=== PATIENT | female | born 1935 | race Caucasian/White ===

== ENCOUNTER 2016-09-04 09:55 | Outpatient (CLI) | payer MEDICARE, BC ==
[~2016-09-04] VITALS: Ht 160 cm; Wt 62.7 kg
[~2016-09-04 09:55] MED LIST: AMOXICILLIN 8751 TAB PO; ASPIRIN E.C. 8181 MG PO; B COMPLEX1 TA2 PO; CIPRO500 MG PO; CO Q-1010 MG PO; DITROPAN 5MG TAB5 MG PO; EFFEXOR 3737.5 MG/TA PO; EFFEXOR XR37.5 MG/CA PO; EFFEXOR XR75 MG/CAP PO; FOSAMAX PO; LOVASTATIN40 MG PO; METHOTREXA2.5 MG/TAB PO; MEVACOR40 MG PO; MUCINEX 60600 MG/TA1 PO; NORCO 325 MG-51 TAB PO; PRILOSEC 20MG20 MG PO; PROBIOTIC FORMU1 CAP PO; REMICADE V100 MG/VIA IV; RESTORIL30 MG PO; TEMAZEPAM30 MG PO; VESICARE 5MG5 MG PO; ZOFRAN 4MG T4 MG/TAB PO
[2016-09-04 10:43] LABS: HEMATOCRIT 38.9 % (37.0-47.0); HEMOGLOBIN 12.7 g/dl (12.5-16.0); MEAN CELL VOLUME 95 fl (80.0-100.0); MEAN CORPUSCULAR HEMOGLOBIN 31 pg (27.0-31.0); MEAN CORPUSCULAR HGB CONC 33 g/dl (33.0-37.0); MEAN PLATELET VOLUME 9.3 fl (7.4-10.4); PLATELET COUNT 282 K/mm3 (130-400); RED BLOOD COUNT 4.09 M/mm3 (4.10-5.30); REDCELL DISTRIBUTION WIDTH-CV 16.7 % (11.5-14.5); WHITE BLOOD COUNT 5.4 K/mm3 (4.8-10.8)
[2016-09-04 10:53] LABS: CREATININE, serum 0.81 mg/dL (0.52-1.25)
[2016-09-04 11:45] VITALS: BP 141/80; PULSE 75; TEMP 97.9
[2016-09-04 12:15] VITALS: BP 143/76; PULSE 74; TEMP 98.1
[2016-09-04 12:45] VITALS: BP 129/63; PULSE 84; TEMP 98.4
[2016-09-04 13:15] VITALS: BP 122/75; PULSE 82; TEMP 98
[2016-09-04 13:45] VITALS: BP 129/77; PULSE 80; TEMP 98.2
== END 2016-09-04 14:00 | disposition home or self-care (01) ==
LOC: EUO 09:55
PROVIDERS: Internal Medicine Rheumatology
DX: M06.89 Other specified rheumatoid arthritis, multiple sites (principal)
CPT/HCPCS: J1200; J1745; J7050

== ENCOUNTER 2016-10-30 09:46 | Outpatient (CLI) | payer MEDICARE, BC ==
[~2016-10-30] VITALS: Ht 160 cm; Wt 60.0 kg
[2016-10-30 10:34] LABS: HEMATOCRIT 38.9 % (37.0-47.0); HEMOGLOBIN 12.7 g/dl (12.5-16.0); MEAN CELL VOLUME 97 fl (80.0-100.0); MEAN CORPUSCULAR HEMOGLOBIN 32 pg (27.0-31.0); MEAN CORPUSCULAR HGB CONC 33 g/dl (33.0-37.0); MEAN PLATELET VOLUME 9.5 fl (7.4-10.4); PLATELET COUNT 263 K/mm3 (130-400); RED BLOOD COUNT 4.03 M/mm3 (4.10-5.30); REDCELL DISTRIBUTION WIDTH-CV 16.7 % (11.5-14.5); WHITE BLOOD COUNT 5.7 K/mm3 (4.8-10.8)
[2016-10-30 10:47] LABS: CREATININE, serum 0.74 mg/dL (0.52-1.25)
[2016-10-30 11:38] VITALS: BP 141/76; PULSE 76; TEMP 97.7
[2016-10-30 12:00] VITALS: BP 147/78; PULSE 88; TEMP 98.1
[2016-10-30 12:30] VITALS: BP 125/76; PULSE 87; TEMP 98.1
[2016-10-30 13:00] VITALS: BP 117/58; PULSE 88; TEMP 98.1
[2016-10-30 13:30] VITALS: BP 122/62; PULSE 77; TEMP 98
== END 2016-10-30 13:45 | disposition home or self-care (01) ==
LOC: EUO 09:46
PROVIDERS: Internal Medicine
DX: M05.9 Rheumatoid arthritis with rheumatoid factor, unspecified (principal); M06.80 Other specified rheumatoid arthritis, unspecified site; Z79.899 Other long term (current) drug therapy
CPT/HCPCS: J1200; J1745; J7050

== ENCOUNTER 2016-12-25 09:42 | Outpatient (CLI) | payer MEDICARE, BC ==
[~2016-12-25] VITALS: Ht 160 cm; Wt 60.5 kg
[2016-12-25 10:29] LABS: HEMATOCRIT 37.3 % (37.0-47.0); HEMOGLOBIN 12.2 g/dl (12.5-16.0); MEAN CELL VOLUME 97 fl (80.0-100.0); MEAN CORPUSCULAR HEMOGLOBIN 32 pg (27.0-31.0); MEAN CORPUSCULAR HGB CONC 33 g/dl (33.0-37.0); MEAN PLATELET VOLUME 9.7 fl (7.4-10.4); PLATELET COUNT 268 K/mm3 (130-400); RED BLOOD COUNT 3.84 M/mm3 (4.10-5.30); REDCELL DISTRIBUTION WIDTH-CV 17.1 % (11.5-14.5); WHITE BLOOD COUNT 6.8 K/mm3 (4.8-10.8)
[2016-12-25 10:54] LABS: CREATININE, serum 0.8 mg/dL (0.52-1.25)
[2016-12-25 11:20] VITALS: BP 139/79; PULSE 78; TEMP 97.8
[2016-12-25 11:50] VITALS: BP 146/81; PULSE 74; TEMP 98.6
[2016-12-25 12:20] VITALS: BP 148/76; PULSE 74; TEMP 97.2
[2016-12-25 13:00] VITALS: BP 134/73; PULSE 76; TEMP 97.6
[2016-12-25 13:25] VITALS: BP 132/72; PULSE 74; TEMP 97.6
== END 2016-12-25 13:25 | disposition home or self-care (01) ==
LOC: EUO 09:42
DX: M06.9 Rheumatoid arthritis, unspecified (principal)
CPT/HCPCS: J1200; J1745; J7050

== ENCOUNTER 2017-02-19 09:49 | Outpatient (CLI) | payer MEDICARE, BC ==
[~2017-02-19] VITALS: Ht 160 cm; Wt 61.5 kg
[2017-02-19 11:10] VITALS: BP 148/82; PULSE 70; TEMP 98.3
[2017-02-19 11:40] VITALS: BP 106/90; PULSE 70; TEMP 98.3
[2017-02-19 12:10] VITALS: BP 151/73; PULSE 63; TEMP 97.5
[2017-02-19 12:40] VITALS: BP 152/74; PULSE 64; TEMP 97.6
== END 2017-02-19 14:10 | disposition home or self-care (01) ==
LOC: EUO 09:49
DX: M06.9 Rheumatoid arthritis, unspecified (principal); Z79.899 Other long term (current) drug therapy
CPT/HCPCS: J1200; J1745; J7050

== ENCOUNTER → 2017-03-12 | Outpatient (CLI) | payer MEDICARE, BC | LOC: COL.RAD 12:21 | DX: M51.36 Other intervertebral disc degeneration, lumbar region (principal); M48.06 Spinal stenosis, lumbar region; M51.27 Other intervertebral disc displacement, lumbosacral region; M46.86 Other specified inflammatory spondylopathies, lumbar region ==

== ENCOUNTER 2017-04-16 12:39 | Outpatient (CLI) | payer MEDICARE, BC ==
[2017-04-16 14:05] VITALS: BP 122/73; PULSE 85; TEMP 97.2
[2017-04-16 14:30] VITALS: BP 142/85; PULSE 78; TEMP 97.7
[2017-04-16] MEDS ORDERED: METHOTREXA2.5 MG/TAB PO (14:40)
[2017-04-16 15:00] VITALS: BP 118/65; PULSE 89; TEMP 97.9
[2017-04-16 15:30] VITALS: BP 145/67; PULSE 71; TEMP 98.2
[2017-04-16 16:00] VITALS: BP 130/70; PULSE 77; TEMP 98.2
== END 2017-04-16 16:30 | disposition home or self-care (01) ==
LOC: EUO 12:39
DX: M06.9 Rheumatoid arthritis, unspecified (principal); Z79.899 Other long term (current) drug therapy
CPT/HCPCS: J1200; J1745; J7050

== ENCOUNTER 2017-06-11 12:52 | Outpatient (CLI) | payer MEDICARE, BC ==
[~2017-06-11] VITALS: Ht 160 cm; Wt 62.6 kg
[2017-06-11 14:10] VITALS: BP 145/98; PULSE 81; TEMP 98.1
[2017-06-11 14:40] VITALS: BP 161/98; PULSE 73; TEMP 98.2
[2017-06-11 15:10] VITALS: BP 149/88; PULSE 89; TEMP 97.9
[2017-06-11 15:40] VITALS: BP 136/78; PULSE 92
[2017-06-11 16:10] VITALS: BP 101/83; PULSE 82
== END 2017-06-11 16:39 | disposition home or self-care (01) ==
LOC: EUO 12:52
DX: M05.79 Rheumatoid arthritis with rheumatoid factor of multiple sites without organ or systems involvement (principal); Z79.899 Other long term (current) drug therapy
CPT/HCPCS: J1200; J7050; Q5102-ZB

== ENCOUNTER 2017-08-07 10:17 | Outpatient (CLI) | payer MEDICARE, BC ==
[~2017-08-07] VITALS: Ht 160 cm; Wt 63.6 kg
[2017-08-07 11:01] VITALS: BP 149/94; PULSE 82; TEMP 98.3
[2017-08-07 11:30] VITALS: BP 160/94; PULSE 69; TEMP 98
[2017-08-07 12:00] VITALS: BP 156/99; PULSE 69
[2017-08-07 12:30] VITALS: BP 156/93; PULSE 83
[2017-08-07 13:00] VITALS: BP 158/98; PULSE 79
== END 2017-08-07 13:03 | disposition home or self-care (01) ==
LOC: EUO 10:17
DX: M06.9 Rheumatoid arthritis, unspecified (principal); Z79.899 Other long term (current) drug therapy
CPT/HCPCS: J1200; J7050; Q5102-ZB

== ENCOUNTER → 2017-09-26 | Outpatient (CLI) | payer MEDICARE, BC | LOC: MC.RAD 13:02 | DX: Z12.31 Encounter for screening mammogram for malignant neoplasm of breast (principal); R92.0 Mammographic microcalcification found on diagnostic imaging of breast ==

== ENCOUNTER → 2017-10-02 | Outpatient (CLI) | payer MEDICARE, BC | LOC: MC.RAD 10:57 | DX: R92.0 Mammographic microcalcification found on diagnostic imaging of breast (principal) ==

== ENCOUNTER 2017-11-28 12:52 | Outpatient (CLI) | payer MEDICARE, BC ==
[~2017-11-28] VITALS: Ht 160 cm; Wt 64.1 kg
[2017-11-28] VITALS (7 sets, daily range): BP systolic 105–142; BP diastolic 62–92; PULSE 78–96; TEMP 97.5–98.2
[2017-11-28 13:25] LABS: HEMATOCRIT 37.8 % (37.0-47.0); HEMOGLOBIN 12.5 g/dl (12.5-16.0); MEAN CELL VOLUME 96 fl (80.0-100.0); MEAN CORPUSCULAR HEMOGLOBIN 32 pg (27.0-31.0); MEAN CORPUSCULAR HGB CONC 33 g/dl (33.0-37.0); MEAN PLATELET VOLUME 9.6 fl (7.4-10.4); PLATELET COUNT 270 K/mm3 (130-400); RED BLOOD COUNT 3.94 M/mm3 (4.10-5.30); REDCELL DISTRIBUTION WIDTH-CV 16.4 % (11.5-14.5)
[2017-11-28 13:26] LABS: ALBUMIN 3.6 gm/dL (3.5-5.0); CREATININE, serum 0.8 mg/dL (0.52-1.25)
== END 2017-11-28 19:00 | disposition home or self-care (01) ==
LOC: EUO 12:52
PROVIDERS: Internal Medicine
DX: M05.79 Rheumatoid arthritis with rheumatoid factor of multiple sites without organ or systems involvement (principal)
CPT/HCPCS: J1200; J7050; Q5103

== ENCOUNTER 2018-01-23 12:29 | Outpatient (CLI) | payer MEDICARE, BC ==
[~2018-01-23] VITALS: Ht 160 cm; Wt 60.0 kg
[2018-01-23 13:20] VITALS: BP 111/54; PULSE 99; TEMP 97.7
[2018-01-23 13:50] VITALS: BP 143/76; PULSE 74; TEMP 98.4
[2018-01-23 14:20] VITALS: BP 122/93; PULSE 93; TEMP 98.1
[2018-01-23 14:50] VITALS: BP 119/62; PULSE 96; TEMP 98.1
[2018-01-23 15:25] VITALS: BP 112/59; PULSE 90; TEMP 97.9
== END 2018-01-23 15:49 | disposition home or self-care (01) ==
LOC: EUO 12:29
DX: M05.79 Rheumatoid arthritis with rheumatoid factor of multiple sites without organ or systems involvement (principal); Z79.899 Other long term (current) drug therapy
CPT/HCPCS: J1200; J7050; Q5103

== ENCOUNTER 2018-03-20 13:03 | Outpatient (CLI) | payer MEDICARE, BC ==
[~2018-03-20] VITALS: Ht 160 cm; Wt 63.0 kg
[2018-03-20 14:38] VITALS: BP 133/83; PULSE 71; TEMP 98.1
[2018-03-20 15:15] VITALS: BP 150/85; PULSE 88; TEMP 98.5
[2018-03-20 15:45] VITALS: BP 125/66; PULSE 90; TEMP 98.2
[2018-03-20 16:15] VITALS: BP 119/64; PULSE 84; TEMP 98.2
[2018-03-20 17:05] VITALS: BP 123/72; PULSE 85; TEMP 97.8
== END 2018-03-20 17:05 | disposition home or self-care (01) ==
LOC: EUO 13:03
DX: M05.79 Rheumatoid arthritis with rheumatoid factor of multiple sites without organ or systems involvement (principal); Z79.899 Other long term (current) drug therapy
CPT/HCPCS: J1200; J7050; Q5103

== ENCOUNTER 2018-05-14 12:46 | Outpatient (CLI) | payer MEDICARE, BC ==
[~2018-05-14] VITALS: Ht 160 cm; Wt 63.6 kg
[2018-05-14 14:05] VITALS: BP 130/74; PULSE 73; TEMP 98.1
[2018-05-14 14:50] VITALS: BP 132/92; PULSE 72; TEMP 97.3
[2018-05-14 15:16] VITALS: BP 142/72; PULSE 66; TEMP 97.9
[2018-05-14 15:45] VITALS: BP 121/61; PULSE 94
[2018-05-14 16:10] VITALS: BP 127/58; PULSE 87; TEMP 97.7
== END 2018-05-14 17:03 | disposition home or self-care (01) ==
LOC: EUO 12:46
DX: M05.79 Rheumatoid arthritis with rheumatoid factor of multiple sites without organ or systems involvement (principal); Z79.899 Other long term (current) drug therapy
CPT/HCPCS: J1200; J7050; Q5103

== ENCOUNTER 2018-07-08 12:39 | Outpatient (CLI) | payer MEDICARE, BC ==
[~2018-07-08] VITALS: Ht 160 cm; Wt 61.9 kg
[2018-07-08 13:07] LABS: HEMATOCRIT 40.5 % (37.0-47.0); HEMOGLOBIN 13.2 g/dl (12.5-16.0); MEAN CELL VOLUME 97 fl (80.0-100.0); MEAN CORPUSCULAR HEMOGLOBIN 32 pg (27.0-31.0); MEAN CORPUSCULAR HGB CONC 33 g/dl (33.0-37.0); MEAN PLATELET VOLUME 9.8 fl (7.4-10.4); PLATELET COUNT 274 K/mm3 (130-400); RED BLOOD COUNT 4.19 M/mm3 (4.10-5.30)
[2018-07-08 13:19] LABS: ALBUMIN 4.1 gm/dL (3.5-5.0); BILIRUBIN,TOTAL 0.6 mg/dL (0.0-1.0); CALCIUM 9.5 mg/dL (8.4-10.2); CREATININE, serum 0.81 mg/dL (0.52-1.25); POTASSIUM 4.2 mmol/L (3.4-5.0); TOTAL PROTEIN 7.9 gm/dL (6.4-8.2)
[2018-07-08 13:48] LABS: BAND 2 % (0-10); BASOPHIL 2 % (0-2); EOSINOPHIL 4 % (0-4); LYMPHOCYTE 39 % (20.0-51.0); NEUTROPHILS 40 % (42.0-75.2); NUCLEATED RED BLOOD CELL 1 (0-6)
[2018-07-08 13:49] LABS: TARGET CELLS 2+
[2018-07-08 13:50] LABS: STOMATOCYTE 1+
[2018-07-08 13:51] LABS: PLATELET ESTIMATE NORMAL (NORMAL)
[2018-07-08 13:52] LABS: ANISOCYTOSIS 1+; POIKILOCYTOSIS 1+
[2018-07-08 13:54] LABS: HOWELL-JOLLY BODIES 2+
[2018-07-08 13:56] LABS: OVALOCYTES 1+
[2018-07-08 14:00] VITALS: BP 136/84; PULSE 75; TEMP 97.6
[2018-07-08 14:30] VITALS: BP 134/71; PULSE 91; TEMP 97.9
[2018-07-08 15:00] VITALS: BP 123/56; PULSE 88
[2018-07-08 15:30] VITALS: BP 122/52; PULSE 88; TEMP 97.4
[2018-07-08 16:05] VITALS: BP 123/56; PULSE 78; TEMP 97.5
== END 2018-07-08 19:00 | disposition home or self-care (01) ==
LOC: EUO 12:39
PROVIDERS: Internal Medicine
DX: M05.79 Rheumatoid arthritis with rheumatoid factor of multiple sites without organ or systems involvement (principal); Z79.899 Other long term (current) drug therapy
CPT/HCPCS: J1200; J7050; Q5103

== ENCOUNTER 2018-09-05 12:35 | Outpatient (CLI) | payer MEDICARE, BC ==
[~2018-09-05] VITALS: Ht 160 cm; Wt 61.0 kg
[2018-09-05 13:22] LABS: BASO # 0.1 (0.0-0.2); EOS # 0.1 (0.0-0.7); GRAN # 2.6 (1.4-6.5); HEMATOCRIT 38.5 % (37.0-47.0); HEMOGLOBIN 12.6 g/dl (12.5-16.0); LYMPH # 2.6 (1.2-3.4); LYMPH % 44.2 % (20.0-51.0); MEAN CELL VOLUME 96 fl (80.0-100.0); MEAN CORPUSCULAR HEMOGLOBIN 31 pg (27.0-31.0); MEAN CORPUSCULAR HGB CONC 33 g/dl (33.0-37.0); MEAN PLATELET VOLUME 9.7 fl (7.4-10.4); MONO # 0.6 (0.1-0.6); MONO % 9.6 % (1.7-9.3); PLATELET COUNT 256 K/mm3 (130-400); RED BLOOD COUNT 4.03 M/mm3 (4.10-5.30); REDCELL DISTRIBUTION WIDTH-CV 15.5 % (11.5-14.5)
[2018-09-05 13:29] LABS: ALBUMIN 3.9 gm/dL (3.5-5.0); BILIRUBIN,TOTAL 0.9 mg/dL (0.0-1.0); CALCIUM 9.7 mg/dL (8.4-10.2); CREATININE, serum 0.82 mg/dL (0.52-1.25); POTASSIUM 4.4 mmol/L (3.4-5.0); TOTAL PROTEIN 7.5 gm/dL (6.4-8.2)
[2018-09-05 14:00] VITALS: BP 144/87; PULSE 83; TEMP 97.5
[2018-09-05 14:30] VITALS: BP 138/86; PULSE 73; TEMP 98.1
[2018-09-05 15:00] VITALS: BP 127/73; PULSE 101; TEMP 98.3
[2018-09-05 15:30] VITALS: BP 113/61; PULSE 88; TEMP 98
[2018-09-05 16:00] VITALS: BP 117/68; PULSE 88; TEMP 98
--- NOTE | 2018-09-05 16:10 | NUR ---
Pt oumar infusion well. Pt is having infusions transfered closer to home. This is the last scheduled appt for this pt. Pt discharged per ambulation.
== END 2018-09-05 16:17 | disposition home or self-care (01) ==
LOC: EUO 12:35
PROVIDERS: Internal Medicine
DX: M05.79 Rheumatoid arthritis with rheumatoid factor of multiple sites without organ or systems involvement (principal); Z79.899 Other long term (current) drug therapy
CPT/HCPCS: J1200; J7050; Q5103